=== PATIENT | male | born 1960 | race Two or more races ===

== ENCOUNTER 2018-06-21 15:25 | Outpatient (CLI) | payer OTHER | END 2018-06-21 15:38 | disposition home or self-care (01) | LOC: LAB 15:25 | DX: R97.20 Elevated prostate specific antigen [PSA] (principal) ==

== ENCOUNTER 2018-08-09 07:12 | Outpatient (CLI) | payer OTHER | END 2018-08-09 07:23 | disposition home or self-care (01) | LOC: SONOGRAMA 07:12 | DX: R97.20 Elevated prostate specific antigen [PSA] (principal) ==

== ENCOUNTER 2019-01-29 18:05 | Outpatient (CLI) | payer OTHER | END 2019-01-29 18:10 | disposition home or self-care (01) | LOC: LAB 18:05 | DX: R97.20 Elevated prostate specific antigen [PSA] (principal) ==

== ENCOUNTER → 2019-04-04 | Outpatient (CLI) | payer OTHER | END | disposition home or self-care (01) | LOC: SONOGRAMA 07:15 | DX: R97.20 Elevated prostate specific antigen [PSA] (principal) ==

== ENCOUNTER 2020-03-06 10:29 | Outpatient (CLI) | payer OTHER | END 2020-03-06 10:43 | disposition home or self-care (01) | LOC: RX STUDY 10:29 | PROVIDERS: ATTEND Internal Medicine Pulmonary Disease | DX: J98.6 Disorders of diaphragm (principal) ==

== ENCOUNTER 2020-11-12 16:53 | Outpatient (CLI) | payer OTHER | END 2020-11-12 17:03 | disposition home or self-care (01) | LOC: LAB 16:53 | PROVIDERS: ATTEND Urology | DX: R97.20 Elevated prostate specific antigen [PSA] (principal) ==

== ENCOUNTER 2020-12-03 07:04 | Outpatient (CLI) | payer OTHER | END 2020-12-03 07:17 | disposition home or self-care (01) | LOC: SONOGRAMA 07:04 | PROVIDERS: ATTEND Urology | DX: D29.1 Benign neoplasm of prostate (principal); R97.20 Elevated prostate specific antigen [PSA] ==